=== PATIENT | male | born 1945 | race Caucasian/White ===

== ENCOUNTER → 2016-09-11 | Outpatient (CLI) | payer MEDICARE, BC ==
[~2016-09-11] MED LIST: ALEVE 220MG220 MG PO; AMBIEN 10MG10 MG PO; AMBIEN5 MG PO; AMITRIPTYLINE H10 M1 PO; ASPI325T6 PO; BENICAR PO; CELEBREX 200MG200 MG PO; CUBICIN 500MG500 MG IV; ELAVIL50 MG PO; FLEXERIL 1010 MG/TAB PO; LORTAB 5/500 501 TAB PO; MEDROL 4MG DOSPA4 MG PO; MILK OF MA400 MG/52 PO; NORCO 325 MG-7.1 TAB PO; NORVASC 10MG10 MG PO; PERCOCET 5/321 UDTAB PO; ROXICODONE 55 MG/TAB PO; SENOKOT8.6 MG PO; SINGULAIR PO; TYLENOL 500MG500 MG PO; VOLTAREN 75 DR75 MG PO; ZOFRAN 4MG T4 MG/TAB PO; [UNRECOGNIZED DRUG - OTHER]
== END ==
LOC: COL.RAD 14:52
DX: Z13.6 Encounter for screening for cardiovascular disorders (principal)

== ENCOUNTER 2016-09-21 12:01 | Inpatient (IN) | payer MEDICARE, BC ==
[~2016-09-21] VITALS: Ht 188 cm; Wt 106.0 kg
[~2016-09-21 12:01] MED LIST changes: -ASPI325T6 PO; -CELEBREX 200MG200 MG PO; -CUBICIN 500MG500 MG IV; -FLEXERIL 1010 MG/TAB PO; -MILK OF MA400 MG/52 PO; -NORCO 325 MG-7.1 TAB PO; -ROXICODONE 55 MG/TAB PO; -SENOKOT8.6 MG PO; -TYLENOL 500MG500 MG PO; -VOLTAREN 75 DR75 MG PO; -ZOFRAN 4MG T4 MG/TAB PO
[2016-11-14] VITALS (9 sets, daily range): BP systolic 124–157; BP diastolic 67–95; PULSE 59–91; TEMP 97.3–98.6
[2016-11-14] MEDS ORDERED: VOLTAREN 75 DR75 MG PO (08:44)
[2016-11-14] MEDS ORDERED: FLEXERIL 1010 MG/TAB PO (08:45)
[2016-11-15 01:00] VITALS: BP 139/77; PULSE 83; TEMP 98.2
[2016-11-15 04:42] VITALS: BP 148/78; PULSE 78; TEMP 97.7
[2016-11-15 06:20] LABS: HEMATOCRIT 41.9 % (42.0-52.0); HEMOGLOBIN 14.8 g/dl (13.5-18.0)
[2016-11-15 08:00] VITALS: BP 132/64; PULSE 80; TEMP 97.4
[2016-11-15 11:44] VITALS: BP 131/74; PULSE 73; TEMP 98
[2016-11-15 16:10] VITALS: BP 146/75; PULSE 81; TEMP 97.5
[2016-11-15 19:26] VITALS: BP 149/73; PULSE 70; TEMP 98.2
[2016-11-16 04:01] VITALS: BP 139/71; PULSE 72; TEMP 98.7
[2016-11-16 07:35] VITALS: BP 141/76; PULSE 76; TEMP 98.2
[2016-11-16 11:21] VITALS: BP 144/80; PULSE 78; TEMP 97.6
[2016-11-16 16:07] VITALS: BP 135/70; PULSE 73; TEMP 97.8
[2016-11-16] MEDS ORDERED: TYLENOL 500MG500 MG PO (16:50)
[2016-11-16] MEDS ORDERED: ASPI325T6 PO (16:50)
[2016-11-16] MEDS ORDERED: CELEBREX 200MG200 MG PO (16:51)
[2016-11-16] MEDS ORDERED: SENOKOT8.6 MG PO (16:51)
[2016-11-16] MEDS ORDERED: MILK OF MA400 MG/52 PO (16:52)
[2016-11-16] MEDS ORDERED: ROXICODONE 55 MG/TAB PO (16:53)
[2016-11-16] MEDS ORDERED: NORCO 325 MG-7.1 TAB PO (16:54)
[2017-01-12] MEDS ORDERED: CUBICIN 500MG500 MG IV (09:42)
[2017-01-17] MEDS ORDERED: ZOFRAN 4MG T4 MG/TAB PO (08:22)
== END 2016-11-16 17:03 | disposition home or self-care (01) | DRG 470 ==
LOC: JCC 11-14 07:46
PROVIDERS: Orthopaedic Surgery
PROC: 0SRC0J9 Replacement of Right Knee Joint with Synthetic Substitute, Cemented, Open Approach (ICD-10-PCS; principal; 2016-11-14 13:40)
DX: M17.31 Unilateral post-traumatic osteoarthritis, right knee (principal); I10 Essential (primary) hypertension; Z87.891 Personal history of nicotine dependence
CPT/HCPCS: A4315; A9284; C1713; C1776; J0690; J1100; J2250; J2405; J2704; J3010; J7030; J7120

== ENCOUNTER → 2016-11-01 | Outpatient (CLI) | payer MEDICARE, BC ==
[~2016-11-01] MED LIST changes: +ASPI325T6 PO; +CELEBREX 200MG200 MG PO; +CUBICIN 500MG500 MG IV; +FLEXERIL 1010 MG/TAB PO; +MILK OF MA400 MG/52 PO; +NORCO 325 MG-7.1 TAB PO; +ROXICODONE 55 MG/TAB PO; +SENOKOT8.6 MG PO; +TYLENOL 500MG500 MG PO; +VOLTAREN 75 DR75 MG PO; +ZOFRAN 4MG T4 MG/TAB PO
[2016-11-01 17:28] LABS: HIV 1/2 Antibodies Non-Reactive; HIV-1p24 Antigen Non-Reactive
== END ==
LOC: COL.LAB 16:29
PROVIDERS: Orthopaedic Surgery
DX: Z01.812 Encounter for preprocedural laboratory examination (principal); M25.861 Other specified joint disorders, right knee

== ENCOUNTER 2017-01-07 11:10 | Inpatient (IN) | payer MEDICARE, BC ==
[~2017-01-07] VITALS: Ht 190.5 cm; Wt 101.4 kg
[2017-01-07] VITALS (8 sets, daily range): BP systolic 107–132; BP diastolic 53–77; PULSE 64–96; TEMP 97.6–98.6
[~2017-01-07 11:10] MED LIST changes: -CUBICIN 500MG500 MG IV; -ZOFRAN 4MG T4 MG/TAB PO
[2017-01-07 12:20] LABS: HEMATOCRIT 40.7 % (42.0-52.0); HEMOGLOBIN 13.7 g/dl (13.5-18.0); MEAN CELL VOLUME 93 fl (80.0-100.0); MEAN CORPUSCULAR HEMOGLOBIN 31 pg (27.0-31.0); MEAN CORPUSCULAR HGB CONC 34 g/dl (33.0-37.0); MEAN PLATELET VOLUME 9.6 fl (7.4-10.4); PLATELET COUNT 437 K/mm3 (130-400); RED BLOOD COUNT 4.37 M/mm3 (4.20-5.60); REDCELL DISTRIBUTION WIDTH-CV 12.8 % (11.5-14.5); WHITE BLOOD COUNT 10.2 K/mm3 (4.8-10.8)
[2017-01-07 12:31] LABS: INR 1.4 (0.8-3.0); PROTHROMBIN TIME 15.2 SECONDS (9.7-12.8)
[2017-01-07 12:45] LABS: ERYTHROCYTE SEDIMENTATION RATE 23 mm/hr (0-30)
[2017-01-07 14:29] LABS: ADJUSTED CALCIUM 9.2 mg/dL (8.4-10.2); ALBUMIN 3.9 gm/dL (3.5-5.0); BILIRUBIN,TOTAL 0.7 mg/dL (0.0-1.0); CALCIUM 9.1 mg/dL (8.4-10.2); CREATININE, serum 0.88 mg/dL (0.66-1.25); POTASSIUM 3.9 mmol/L (3.4-5.0); TOTAL PROTEIN 7.2 gm/dL (6.4-8.2)
[2017-01-08 05:45] VITALS: BP 118/60; PULSE 50; TEMP 97.6
[2017-01-08 06:46] LABS: HEMATOCRIT 34.5 % (42.0-52.0); HEMOGLOBIN 11.7 g/dl (13.5-18.0)
[2017-01-08 07:24] VITALS: BP 116/70; PULSE 87; TEMP 97.9
[2017-01-08 07:26] VITALS: BP 116/70; PULSE 87; TEMP 97.9
[2017-01-08 14:41] VITALS: BP 122/58; PULSE 81; TEMP 98.6
[2017-01-08 17:09] VITALS: BP 130/64; PULSE 78; TEMP 98.8
[2017-01-08 22:06] VITALS: BP 129/64; PULSE 87; TEMP 98.4
[2017-01-09 02:27] VITALS: BP 126/65; PULSE 76; TEMP 98.6
[2017-01-09 06:30] VITALS: BP 130/68; PULSE 81; TEMP 97.8
[2017-01-09 07:17] LABS: HEMATOCRIT 33.8 % (42.0-52.0); HEMOGLOBIN 11.2 g/dl (13.5-18.0)
[2017-01-09 07:37] VITALS: BP 127/66; PULSE 77; TEMP 98.5
[2017-01-09 13:12] VITALS: BP 131/67; PULSE 71
[2017-01-09 15:57] VITALS: BP 134/69; PULSE 70
[2017-01-09 21:53] VITALS: BP 130/65; PULSE 75; TEMP 97.9
[2017-01-10 01:16] VITALS: BP 126/66; PULSE 68; TEMP 97.6
[2017-01-10 06:17] LABS: HEMATOCRIT 34.6 % (42.0-52.0); HEMOGLOBIN 11.4 g/dl (13.5-18.0)
[2017-01-10 06:26] VITALS: BP 137/72; PULSE 70; TEMP 97.8
[2017-01-10 06:40] LABS: ADJUSTED CALCIUM 9.2 mg/dL (8.4-10.2); ALBUMIN 2.8 gm/dL (3.5-5.0); BILIRUBIN,TOTAL 0.4 mg/dL (0.0-1.0); CALCIUM 8.2 mg/dL (8.4-10.2); CREATININE, serum 0.72 mg/dL (0.66-1.25); POTASSIUM 3.6 mmol/L (3.4-5.0); TOTAL PROTEIN 5.6 gm/dL (6.4-8.2)
[2017-01-10 07:30] VITALS: BP 128/73; PULSE 75; TEMP 98.1
[2017-01-10 11:45] VITALS: BP 94/72; PULSE 75
[2017-01-10 16:15] VITALS: BP 138/67; PULSE 73; TEMP 98.9
[2017-01-10 21:17] VITALS: BP 149/72; PULSE 70; TEMP 98.4
[2017-01-11 05:55] VITALS: BP 132/73; PULSE 69; TEMP 97.6
[2017-01-11 07:37] VITALS: BP 140/85; PULSE 84; TEMP 98.1
[2017-01-11 11:50] VITALS: BP 143/68; PULSE 75; TEMP 98.7
[2017-01-12] MEDS ORDERED: CUBICIN 500MG500 MG IV (09:42)
[2017-01-17] MEDS ORDERED: ZOFRAN 4MG T4 MG/TAB PO (08:22)
== END 2017-01-11 16:38 | disposition home or self-care (01) | DRG 487 ==
LOC: SDCO 11:10 → COL.LAB 11:10 → EDSTATUS 15:48 → INPTSU 16:04 → SURG 18:29 → JCC 01-08 06:48
PROVIDERS: Orthopaedic Surgery
PROC: 0SBC0ZZ Excision of Right Knee Joint, Open Approach (ICD-10-PCS; 2017-01-07)
PROC: 0SUV09Z Supplement Right Knee Joint, Tibial Surface with Liner, Open Approach (ICD-10-PCS; 2017-01-07)
PROC: 0SPC09Z Removal of Liner from Right Knee Joint, Open Approach (ICD-10-PCS; principal; 2017-01-07 15:30)
DX: T84.53XA Infection and inflammatory reaction due to internal right knee prosthesis, initial encounter (principal); I10 Essential (primary) hypertension; J45.909 Unspecified asthma, uncomplicated; Z85.46 Personal history of malignant neoplasm of prostate; Z96.651 Presence of right artificial knee joint
CPT/HCPCS: A4315; A9284; C1751; C1776; J0690; J0696; J0878; J1100; J1644; J2250; J2270; J2370; J2405; J2704; J3010; J3370; J7040; J7050; J7120

== ENCOUNTER 2017-02-16 12:13 | Outpatient (RCR) | payer MEDICARE, BC ==
[2017-01-12 09:43] VITALS: BP 131/73; PULSE 83; TEMP 98
[2017-01-13 08:30] VITALS: BP 129/66; PULSE 81; TEMP 98.1
[2017-01-13 08:57] LABS: C-REACTIVE PROTEIN 6.8 mg/dL (0.0-0.9)
[2017-01-14 09:12] VITALS: BP 124/66; PULSE 82; TEMP 98.2
[2017-01-15 08:30] VITALS: BP 125/74; PULSE 94; TEMP 97.2
[2017-01-16 08:20] VITALS: BP 130/66; PULSE 85
[2017-01-17 08:22] VITALS: BP 107/90; PULSE 84; TEMP 98.1
[2017-01-18 08:20] VITALS: BP 123/69; PULSE 85; TEMP 97.6
[2017-01-19 07:23] VITALS: BP 139/73; PULSE 96; TEMP 98.2
[2017-01-20 07:22] VITALS: BP 130/67; PULSE 90; TEMP 97.9
[2017-01-21 09:00] VITALS: BP 136/73; PULSE 77; TEMP 97.8
[2017-01-22 07:28] VITALS: BP 140/69; PULSE 87; TEMP 97.6
[2017-01-23 08:23] VITALS: BP 130/71; PULSE 97; TEMP 97.9
[2017-01-24 08:25] VITALS: BP 129/72; PULSE 92; TEMP 97.9
[2017-01-25 08:34] VITALS: BP 133/81; PULSE 79; TEMP 98.3
[2017-01-26 07:19] VITALS: BP 134/70; PULSE 88; TEMP 98.2
[2017-01-27 07:13] VITALS: BP 125/74; PULSE 86
[2017-01-28 08:20] VITALS: BP 119/72; PULSE 88; TEMP 97.9
[2017-01-29 08:36] VITALS: BP 131/73; PULSE 86; TEMP 98.1
[2017-01-30 08:10] VITALS: BP 133/78; PULSE 87; TEMP 98
[2017-01-31 08:41] VITALS: BP 128/73; PULSE 75; TEMP 98.4
[2017-02-01 08:16] VITALS: BP 127/77; PULSE 65; TEMP 97.8
[2017-02-02 07:28] VITALS: BP 150/87; PULSE 82; TEMP 97.8
[2017-02-03 08:50] VITALS: BP 135/73; PULSE 74; TEMP 98.7
[2017-02-04 12:51] VITALS: BP 138/78; PULSE 87; TEMP 97.8
[2017-02-05 12:31] VITALS: BP 151/80; PULSE 81; TEMP 98.3
[2017-02-06 12:21] VITALS: BP 138/74; PULSE 76; TEMP 97.8
[2017-02-07 13:31] VITALS: BP 148/85; PULSE 89; TEMP 97.8
[2017-02-07 13:56] LABS: C-REACTIVE PROTEIN 2.8 mg/dL (0.0-0.9)
[2017-02-08 14:24] VITALS: BP 128/79; PULSE 74; TEMP 98
[2017-02-09 09:11] VITALS: BP 132/72; PULSE 82; TEMP 98
[2017-02-10 09:00] VITALS: BP 131/79; PULSE 80; TEMP 98
[2017-02-11 11:17] VITALS: BP 147/77; PULSE 81; TEMP 98.1
[2017-02-12 12:43] VITALS: BP 137/64; PULSE 84; TEMP 97.3
[2017-02-13 13:16] VITALS: BP 137/81; PULSE 95; TEMP 98.1
[2017-02-14 13:32] LABS: C-REACTIVE PROTEIN 1.6 mg/dL (0.0-0.9)
[2017-02-14 14:29] VITALS: BP 120/67; PULSE 80; TEMP 98.1
[2017-02-15 12:19] VITALS: BP 134/84; PULSE 79; TEMP 98
[~2017-02-16] VITALS: Ht 190.5 cm; Wt 102.7 kg
[~2017-02-16 12:13] MED LIST changes: +CUBICIN 500MG500 MG IV; +ZOFRAN 4MG T4 MG/TAB PO
[2017-02-18 12:33] VITALS: BP 145/85; PULSE 68; TEMP 98.2
[2017-02-20 13:03] VITALS: BP 140/91; PULSE 76; TEMP 98.2
[2017-02-21 12:54] VITALS: BP 107/91; PULSE 81; TEMP 98.3
[2017-02-22 12:23] VITALS: BP 131/79; PULSE 74; TEMP 97.5
== END 2017-02-22 13:08 ==
LOC: EUO 02-17 07:15
PROVIDERS: Orthopaedic Surgery
DX: I10 Essential (primary) hypertension (principal); Z79.899 Other long term (current) drug therapy; Z85.46 Personal history of malignant neoplasm of prostate; Z90.79 Acquired absence of other genital organ(s)
CPT/HCPCS: J0878; J1644

== ENCOUNTER → 2017-03-07 | Outpatient (CLI) | payer MEDICARE, BC | LOC: COL.LAB 12:42 | DX: Z01.89 Encounter for other specified special examinations (principal) ==

== ENCOUNTER 2017-11-05 06:30 | Day surgery (SDC) | payer MEDICARE, BC ==
[~2017-11-05] VITALS: Ht 188 cm; Wt 104.3 kg
[2017-11-05] MEDS ORDERED: FLEXERIL 1010 MG/TAB PO (06:47)
[2017-11-05] MEDS ORDERED: AMITRIPTYLINE H50 M1 PO (06:48)
[2017-11-05] MEDS ORDERED: NORVASC 10MG10 MG PO (06:48)
[2017-11-05] MEDS ORDERED: SINGULAIR 110 MG/TAB PO (06:48)
[2017-11-05] MEDS ORDERED: VOLTAREN 75 DR75 MG PO (06:48)
[2017-11-05 07:07] VITALS: BP 135/90; PULSE 73; TEMP 97.7
[2017-11-05 08:20] VITALS: BP 135/85; PULSE 84; TEMP 97.4
[2017-11-05 08:35] VITALS: BP 125/81; PULSE 65
[2017-11-05 15:59] VITALS: BP 133/80; PULSE 67
== END 2017-11-05 09:08 | disposition home or self-care (01) ==
LOC: SDCO 06:30
DX: Z12.11 Encounter for screening for malignant neoplasm of colon (principal); Z86.010 Personal history of colon polyps; Z87.19 Personal history of other diseases of the digestive system; K57.30 Diverticulosis of large intestine without perforation or abscess without bleeding; I10 Essential (primary) hypertension; Z85.46 Personal history of malignant neoplasm of prostate; Z85.828 Personal history of other malignant neoplasm of skin; Z96.651 Presence of right artificial knee joint; J45.909 Unspecified asthma, uncomplicated; Z87.891 Personal history of nicotine dependence
CPT/HCPCS: OP; J2250; J3010; J7030

== ENCOUNTER → 2019-01-01 | Outpatient (CLI) | payer MEDICARE, BC ==
[~2019-01-01] MED LIST changes: +AMITRIPTYLINE H50 M1 PO; +SINGULAIR 110 MG/TAB PO
== END ==
LOC: COL.RAD 13:31
DX: M16.11 Unilateral primary osteoarthritis, right hip (principal)
CPT/HCPCS: J3301; Q9967

== ENCOUNTER 2019-09-17 06:46 | Emergency (ER) | payer MEDICARE, BC ==
[~2019-09-17] VITALS: Ht 188 cm; Wt 100.0 kg
[2019-09-17 06:55] VITALS: TEMP 98
[2019-09-17 09:07] VITALS: PULSE 83
== END 2019-09-17 09:16 | disposition home or self-care (01) ==
LOC: COL.ER 06:46
DX: S01.81XA Laceration without foreign body of other part of head, initial encounter (principal); R40.2410 Glasgow coma scale score 13-15, unspecified time; W01.190A Fall on same level from slipping, tripping and stumbling with subsequent striking against furniture, initial encounter; Y92.009 Unspecified place in unspecified non-institutional (private) residence as the place of occurrence of the external cause

== ENCOUNTER → 2019-09-21 | Outpatient (CLI) | payer MEDICARE, BC ==
[2019-09-21 14:44] VITALS: BP 178/80; PULSE 76; TEMP 97
== END ==
LOC: COL.ER 14:34
DX: Z48.02 Encounter for removal of sutures (principal)

== ENCOUNTER → 2020-01-25 | Outpatient (CLI) | payer MEDICARE, BC | LOC: COL.RAD 09:21 | DX: Z01.812 Encounter for preprocedural laboratory examination (principal); M47.812 Spondylosis without myelopathy or radiculopathy, cervical region; M50.21 Other cervical disc displacement, high cervical region; M48.02 Spinal stenosis, cervical region | CPT/HCPCS: A9585 ==

== ENCOUNTER → 2020-06-29 | Outpatient (CLI) | payer MEDICARE, BC ==
--- NOTE | 2020-06-24 09:56 | NUR ---
LMOM TO CALL BACK
[~2020-06-29] VITALS: Ht 188 cm; Wt 103.0 kg
[~2020-06-29] MED LIST changes: +LIPITOR 10MG10 MG PO
[2020-06-29 08:07] VITALS: BP 151/88; PULSE 66
--- NOTE | 2020-06-29 09:03 | NUR ---
pt leaves for procdure
[2020-06-29 09:40] VITALS: BP 153/89; PULSE 63
== END ==
LOC: COL.RAD 06-24 12:30
DX: M48.061 Spinal stenosis, lumbar region without neurogenic claudication (principal); M51.36 Other intervertebral disc degeneration, lumbar region
CPT/HCPCS: J3301

== ENCOUNTER → 2020-08-22 | Outpatient (CLI) | payer MEDICARE, BC ==
[~2020-08-22] VITALS: Ht 188 cm; Wt 103.8 kg
[2020-08-22 12:02] VITALS: BP 174/92; PULSE 78
[2020-08-22 14:40] VITALS: BP 152/94; PULSE 79
== END ==
LOC: COL.RAD 11:46
DX: M51.36 Other intervertebral disc degeneration, lumbar region (principal)
CPT/HCPCS: J3301

== ENCOUNTER → 2020-11-14 | Outpatient (CLI) | payer MEDICARE, BC ==
[~2020-11-14] VITALS: Ht 188 cm; Wt 106.5 kg
[2020-11-14 10:10] VITALS: BP 152/84; PULSE 70
[2020-11-14 11:20] VITALS: BP 153/93; PULSE 74
== END ==
LOC: COL.RAD 11-03 12:30
DX: M54.5 Low back pain (principal)
CPT/HCPCS: J3301

== ENCOUNTER → 2021-02-27 | Outpatient (CLI) | payer MEDICARE, BC ==
--- NOTE | 2021-02-23 13:31 | NUR ---
LMOM WITH INFORMATION AND CALL BACK NUMBER
[~2021-02-27] VITALS: Ht 188 cm; Wt 105.2 kg
[2021-02-27 13:17] VITALS: BP 137/55; PULSE 82; TEMP 97.8
== END ==
LOC: COL.RAD 12:49
DX: N28.9 Disorder of kidney and ureter, unspecified (principal); M54.5 Low back pain
CPT/HCPCS: J3301

== ENCOUNTER 2021-04-30 08:57 | Emergency (ER) | payer MEDICARE, BC ==
[~2021-04-30] VITALS: Ht 182.9 cm; Wt 100.5 kg
[2021-04-30 09:54] LABS: BASO # 0.1 (0.0-0.2); BASO % 0.7 % (0.0-2.0); EOS # 0.1 (0.0-0.7); GRAN # 11.8 (1.4-6.5); GRAN % 81.4 % (42.2-75.2); HEMATOCRIT 44.9 % (42.0-52.0); HEMOGLOBIN 15.6 g/dl (13.5-18.0); LYMPH # 1.5 (1.2-3.4); LYMPH % 10.4 % (20.0-51.0); MEAN CELL VOLUME 92 fl (80.0-100.0); MEAN CORPUSCULAR HEMOGLOBIN 32 pg (27.0-31.0); MEAN CORPUSCULAR HGB CONC 35 g/dl (33.0-37.0); MEAN PLATELET VOLUME 9.6 fl (7.4-10.4); MONO # 0.9 (0.1-0.6); PLATELET COUNT 287 K/mm3 (130-400); RED BLOOD COUNT 4.89 M/mm3 (4.20-5.60); REDCELL DISTRIBUTION WIDTH-CV 13.4 % (11.5-14.5)
[2021-04-30 10:04] LABS: ALBUMIN 4.1 gm/dL (3.5-5.0); BILIRUBIN,TOTAL 0.5 mg/dL (0.0-1.0); CALCIUM 8.9 mg/dL (8.4-10.2); CREATININE, serum 0.92 (0.66-1.25); POTASSIUM 3.6 mmol/L (3.4-5.0); TOTAL PROTEIN 6.7 gm/dL (6.4-8.2)
[2021-04-30 10:20] LABS: TROPONIN-I 0.038 ng/mL (0.000-0.035)
[2021-04-30 10:29] LABS: COLLECTION METHOD CLEAN CATCH
[2021-04-30 10:38] LABS: MUCOUS Present /lpf; PH 5 (5-8); SQUAMOUS EPITHELIAL 0-2 /hpf; URINE APPEARANCE Clear; URINE BACTERIA None Seen /hpf; URINE BILIRUBIN Negative (NEGATIVE); URINE BLOOD Negative (NEGATIVE); URINE COLOR Amber; URINE GLUCOSE Negative (NEGATIVE); URINE KETONE Trace (NEGATIVE); URINE LEUKOCYTE ESTERASE Negative (NEGATIVE); URINE NITRATE Negative (NEGATIVE); URINE PROTEIN(semi-quant) 1+ (NEGATIVE)
[2021-04-30 10:52] LABS: TSH w REFLEX 1.35 uIU/mL (0.350-4.940)
[2021-04-30 11:10] VITALS: BP 107/87; PULSE 70
== END 2021-04-30 11:22 | disposition home or self-care (01) ==
LOC: COL.ER 08:57
PROVIDERS: Emergency Medicine
DX: S00.81XA Abrasion of other part of head, initial encounter (principal); D72.829 Elevated white blood cell count, unspecified; R74.8 Abnormal levels of other serum enzymes; V48.5XXA Car driver injured in noncollision transport accident in traffic accident, initial encounter

== ENCOUNTER → 2021-06-02 | Outpatient (CLI) | payer MEDICARE, BC | LOC: COL.RAD 13:38 | DX: G31.9 Degenerative disease of nervous system, unspecified (principal); R90.82 White matter disease, unspecified | CPT/HCPCS: A9585 ==

== ENCOUNTER → 2021-07-11 | Outpatient (CLI) | payer MEDICARE, BC ==
[~2021-07-11] VITALS: Ht 182.9 cm; Wt 108.8 kg
[2021-07-11 12:45] VITALS: BP 145/78; PULSE 66; TEMP 98.4
[2021-07-11 14:25] VITALS: BP 169/83; PULSE 84
== END ==
LOC: COL.RAD 12:21
DX: M54.50 Low back pain, unspecified (principal)
CPT/HCPCS: J3301

== ENCOUNTER 2021-08-14 18:15 | Emergency (ER) | payer MEDICARE, BC ==
[~2021-08-14] VITALS: Ht 185.4 cm; Wt 101.4 kg
[2021-08-14 18:24] VITALS: TEMP 98.1
[2021-08-14 22:12] VITALS: BP 161/100; PULSE 89
== END 2021-08-14 22:12 | disposition home or self-care (01) ==
LOC: COL.ER 18:15
DX: S01.112A Laceration without foreign body of left eyelid and periocular area, initial encounter (principal); I10 Essential (primary) hypertension; E78.5 Hyperlipidemia, unspecified; Z79.899 Other long term (current) drug therapy; W01.198A Fall on same level from slipping, tripping and stumbling with subsequent striking against other object, initial encounter; Y92.89 Other specified places as the place of occurrence of the external cause

== ENCOUNTER 2021-08-18 10:31 | Emergency (ER) | payer MEDICARE, BC ==
[~2021-08-18] VITALS: Ht 185.4 cm; Wt 105.5 kg
[2021-08-18 13:30] VITALS: BP 158/64; PULSE 80; TEMP 98.3
== END 2021-08-18 13:30 | disposition home or self-care (01) ==
LOC: COL.ER 10:31
DX: S22.32XA Fracture of one rib, left side, initial encounter for closed fracture (principal); E78.5 Hyperlipidemia, unspecified; Z79.899 Other long term (current) drug therapy; W01.0XXA Fall on same level from slipping, tripping and stumbling without subsequent striking against object, initial encounter

== ENCOUNTER → 2021-08-23 | Outpatient (CLI) | payer MEDICARE, BC | LOC: COL.RAD 08:51 | DX: Z01.812 Encounter for preprocedural laboratory examination (principal); R91.8 Other nonspecific abnormal finding of lung field; N28.89 Other specified disorders of kidney and ureter; M62.89 Other specified disorders of muscle; K57.30 Diverticulosis of large intestine without perforation or abscess without bleeding; K44.9 Diaphragmatic hernia without obstruction or gangrene | CPT/HCPCS: Q9967 ==

== ENCOUNTER → 2022-01-03 | Outpatient (CLI) | payer MEDICARE, BC | LOC: MHCPAIN 12:47 | DX: M53.3 Sacrococcygeal disorders, not elsewhere classified (principal); M54.50 Low back pain, unspecified; M96.1 Postlaminectomy syndrome, not elsewhere classified; M47.896 Other spondylosis, lumbar region | CPT/HCPCS: G0463; J1040; Q9967 ==

== ENCOUNTER → 2022-01-04 | Outpatient (CLI) | payer MEDICARE, BC | LOC: MHCPAIN 12:24 | DX: M53.3 Sacrococcygeal disorders, not elsewhere classified (principal); M47.817 Spondylosis without myelopathy or radiculopathy, lumbosacral region | CPT/HCPCS: G0260 ==

== ENCOUNTER → 2022-01-24 | Outpatient (CLI) | payer MEDICARE, BC | LOC: MHCPAIN 12:29 | DX: M47.816 Spondylosis without myelopathy or radiculopathy, lumbar region (principal); M53.3 Sacrococcygeal disorders, not elsewhere classified; M54.50 Low back pain, unspecified; M96.1 Postlaminectomy syndrome, not elsewhere classified | CPT/HCPCS: G0463 ==

== ENCOUNTER → 2022-02-08 | Outpatient (CLI) | payer MEDICARE, BC | LOC: MHCPAIN 08:12 | DX: M47.817 Spondylosis without myelopathy or radiculopathy, lumbosacral region (principal); M54.50 Low back pain, unspecified; M53.3 Sacrococcygeal disorders, not elsewhere classified ==

== ENCOUNTER → 2022-02-15 | Outpatient (CLI) | payer MEDICARE, BC | LOC: MHCPAIN 11:28 | DX: M47.817 Spondylosis without myelopathy or radiculopathy, lumbosacral region (principal); M54.50 Low back pain, unspecified; M53.3 Sacrococcygeal disorders, not elsewhere classified | CPT/HCPCS: G0463 ==

== ENCOUNTER → 2022-03-05 | Outpatient (CLI) | payer MEDICARE, BC | LOC: MHCPAIN 12:02 | DX: M47.817 Spondylosis without myelopathy or radiculopathy, lumbosacral region (principal); M54.50 Low back pain, unspecified; M53.3 Sacrococcygeal disorders, not elsewhere classified; M96.1 Postlaminectomy syndrome, not elsewhere classified | CPT/HCPCS: G0463; J1100; J2250; J3010 ==

== ENCOUNTER → 2022-05-01 | Outpatient (CLI) | payer MEDICARE, BC | LOC: MHCPAIN 13:24 | DX: M47.896 Other spondylosis, lumbar region (principal); M96.1 Postlaminectomy syndrome, not elsewhere classified; M53.3 Sacrococcygeal disorders, not elsewhere classified; M54.16 Radiculopathy, lumbar region | CPT/HCPCS: G0463 ==

== ENCOUNTER → 2022-10-30 | Outpatient (CLI) | payer MEDICARE, BC | LOC: MHCPAIN 08:21 | DX: M47.896 Other spondylosis, lumbar region (principal); M96.1 Postlaminectomy syndrome, not elsewhere classified; M54.50 Low back pain, unspecified; M53.3 Sacrococcygeal disorders, not elsewhere classified | CPT/HCPCS: G0463 ==

== ENCOUNTER → 2023-06-18 | Outpatient (CLI) | payer MEDICARE, BC | LOC: COL.RAD 16:07 | DX: M43.16 Spondylolisthesis, lumbar region (principal); M96.1 Postlaminectomy syndrome, not elsewhere classified ==

== ENCOUNTER → 2023-06-18 | Outpatient (CLI) | payer MEDICARE, BC | LOC: MHCPAIN 14:48 | DX: M48.061 Spinal stenosis, lumbar region without neurogenic claudication (principal); M47.816 Spondylosis without myelopathy or radiculopathy, lumbar region; M54.50 Low back pain, unspecified; M96.1 Postlaminectomy syndrome, not elsewhere classified | CPT/HCPCS: G0463 ==